=== PATIENT | female | born 1955 | race Caucasian/White ===

== ENCOUNTER 2018-05-14 19:16 | Emergency (ER) | payer OTHER ==
[~2018-05-14] VITALS: Ht 162.6 cm; Wt 60.0 kg
[2018-05-14] MEDS ORDERED: TETanus/Pertussis (Acell)/Diphther VAC/PF (Tdap-Adult) 0.5ml syringe IM ONE (21:40)
[2018-05-14] MEDS ORDERED: LIDOcaine 1.5% w/epinephrine 1:200,000 5ml ampul IJ ONE (21:40)
[2018-05-14 23:07] VITALS: BP 125/89
== END 2018-05-14 23:08 | disposition home or self-care (01) ==
LOC: ER 19:17
DX: S81.811A Laceration without foreign body, right lower leg, initial encounter (principal); I10 Essential (primary) hypertension; F17.200 Nicotine dependence, unspecified, uncomplicated; W45.8XXA Other foreign body or object entering through skin, initial encounter; Y93.89 Activity, other specified; Y92.89 Other specified places as the place of occurrence of the external cause; Y99.8 Other external cause status
CPT/HCPCS: 12002; 90471; 90715; 99283; A6449; J3490